=== PATIENT | female | born 1985 | race Caucasian/White ===

== ENCOUNTER 2025-03-14 07:46 | Outpatient (CLI) | payer BC | END 2025-03-14 07:47 | disposition home or self-care (01) | LOC: SCSMRI 07:46 | PROVIDERS: ATTEND Student in an Organized Health Care Education/Training Program | DX: M47.22 Other spondylosis with radiculopathy, cervical region (principal); M50.123 Cervical disc disorder at C6-C7 level with radiculopathy; M50.122 Cervical disc disorder at C5-C6 level with radiculopathy; M48.02 Spinal stenosis, cervical region | CPT/HCPCS: 72141 ==